=== PATIENT | female | born 1995 | race Two or more races ===

== ENCOUNTER → 2017-06-21 | Outpatient (CLI) | payer OTHER ==
--- NOTE | 2017-06-21 12:55 | REP ---
LEFT FINGERS, FOUR VIEWS: HISTORY: Injury. There is a nondisplaced fracture of the distal phalange of the second digit. There is no dislocation. The joint spaces are normal in appearance. IMPRESSION: Fracture of the distal phalange of the second digit. Signed by Kailash Woods MD 06/21/2017 01:02 P
== END ==
LOC: M LRY 12:27
PROVIDERS: ATTEND Nurse Practitioner Family
DX: S69.92XA Unspecified injury of left wrist, hand and finger(s), initial encounter (principal); W18.30XA Fall on same level, unspecified, initial encounter; Y92.009 Unspecified place in unspecified non-institutional (private) residence as the place of occurrence of the external cause